=== PATIENT | female | born 1995 | race Caucasian/White ===

== ENCOUNTER 2024-01-27 10:12 | Emergency (ER) | payer OTHER, SELFPAY ==
[2024-01-27 10:13] VITALS: BP 160/111
[2024-01-27 10:41] VITALS: BMI 23.1
--- NOTE | 2024-01-27 10:52 | ED.GENMED ---
History of Present Illness
General
Chief Complaint: Heart Rate Problem
Time Seen by Provider: 01/27/24 10:34
Travel History
Have you had any contact with someone who has COVID-19?: No
Do you have any symptoms of coronavirus? Fever > 100 degrees, chills, cough, shortness of breath, sore throat, loss of taste or smell, muscle aches, or headache?: No
History of Present Illness
History of Present Illness:
Patient is a 28-year-old female with past medical history of GERD, anxiety, depression, and history of suicidal ideations, here today for evaluation of an episode of presyncope/syncope that occurred yesterday in the afternoon. Patient states
yesterday afternoon she was using a tanning bed when she developed sudden onset of feeling like she was going to pass out. Symptoms were described as feeling lightheaded, having tunnel vision, decreased/muffled hearing, a wave of generalized
tingling in her body, and palpitations. She does report feeling like she was going in and out of consciousness but was able to help her self to the floor and does not believe she truly blacked out. No head trauma. No uncontrollable shaking. No
history of seizure-like activity. Patient denies tongue biting. No urinary or bowel incontinence. Patient states the symptoms lasted less than 5 minutes and then self resolved. No noted chest pain. No focal weakness. No fevers. Symptoms have
significantly improved but she still reports mild fatigue, intermittent lightheaded, and generalized tingling in her body. Patient does report a similar episode happening this past October while she was in the car but this self resolved. She was
not medically evaluated at that time. The patient does report marijuana use but denies other drug use. She does endorse alcohol use and drinks approximately 4 drinks per day more than 5 days of the week. She denies alcohol or drug use prior to
the event. Patient does report eating appropriately prior to the event. No pain noted. She denies recent surgeries or immobilizations. No active cancer. No personal history of DVT/PE. No unilateral lower extremity pain or swelling. No
hemoptysis. The patient does report taking estrogen containing control.
Past History
Past History
ED Past Medical History: Psychiatric
ED Past Surgical History: None
Social History
Tobacco: Smoker
Alcohol: None
Drug: None
Family History
Family History: Hypertension
Review of Systems
Review of Systems
All Other Systems: ROS reviewed and negative except as documented in HPI and ROS
Phy Exam
Physical Exam
Physical Exam:
GENERAL: Alert , in no apparent distress
EYE: pupils equal and reactive to light, extraocular movements intact
NECK: Supple, no significant adenopathy.
ENT: o/p clr, mmm.
CARDIAC: Regular rate and rhythm .
LUNGS: Clear breath sounds bilaterally, no acute respiratory distress, no wheezes/rales/rhonchi
ABDOMEN: Soft, without focal tenderness, no r/g, no cvat
NEUROLOGICAL: Alert and oriented, no focal neuro deficits, cranial nerves II through XII intact, moving all extremities, normal sensation and motor, normal cerebellar function
SKIN: Warm and dry, skin intact.
MUSCULOSKELETAL: No edema, well perfused.
PSYCH: Normal and appropriate interaction.
Course
Orders/Labs/Results
Orders:
Orders
01/27/24 10:19
Electrocardiogram (*1) Urgent
Reason for Study: Chest Pain
EKG- Treatment ONCE
01/27/24 10:55
Orthostatic VS- Treatment ONCE
0.9% Sodium Chloride 1000 ml [Nss] 1,000 ml IV BOLUS
Test Result ONCE
01/27/24 10:56
Cardiac Monitoring- Treatment ONCE
01/27/24 11:06
Basic Metabolic Panel Urgent
Complete Blood Count/With Diff Urgent
D-Dimer Urgent
HCG, Serum Qualitative Screen Urgent
Comment: ADD ON
Magnesium Urgent
Phosphorus Urgent
TSH Reflex To Free T4 Urgent
Troponin I Urgent
01/27/24 11:15
Add On- LAB Urgent
Tests Added?: HCG Serum
01/27/24 12:40
CT Chest Pe Study Urgent
Comment:
Reason For Exam: elevated d-dimer, palpitations
Abnormal Lab Results
01/27/24
11:06
MCH 31.4 H pg
(27.0-31.0)
D-Dimer 0.60 H ug/mlFEU
(0.00-0.50)
01/27/24 11:06
01/27/24 11:06
Vital Signs
Initial and Last Documented VS:
Initial Vital Signs
Temp Pulse Resp BP Pulse Ox
97.6 F 105 20 160/111 98
01/27/24 10:13 01/27/24 10:13 01/27/24 10:13 01/27/24 10:13 01/27/24 10:13
Last Documented Vital Signs
Temp Pulse Resp BP Pulse Ox
97.6 F 84 19 146/95 99
01/27/24 10:13 01/27/24 12:45 01/27/24 12:45 01/27/24 12:00 01/27/24 12:45
MDM/Problems Addressed
Differential Diagnosis Includes:
Patient is a 28-year-old female with past medical history of GERD, anxiety, depression, and history of suicidal ideations, here today for evaluation of an episode of presyncope/syncope that occurred yesterday in the afternoon. Overall, patient
appears very well. She is moderately hypertensive here to 160/111. She is also mildly tachycardic to 105. Patient is afebrile. Patient otherwise has a benign and reassuring examination. She is neurologically intact without acute focal deficits
appreciated. No murmurs. The patient's episode of presyncope/syncope does not appear neurological in nature. No seizure-like activity noted. No findings of TIA/CVA. We discussed the possibility of dehydration and the fact that the patient was
in a very warm environment. We also discussed the possibility of a vasovagal near syncopal/syncopal episode. 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 Will obtain screening labs including to assess for dehydration as well as electrolyte
abnormalities. Will obtain D-dimer given tachycardia, estrogen-containing control, palpitations, and near syncope/syncope. Will obtain EKG. Will obtain orthostatic vital signs. Will closely monitor and reassess.
01/27/2024 1434: Screening labs were obtained which revealed no acute findings. D-dimer slightly elevated and this prompted a CT pulmonary embolism study which is negative for acute findings. Urine test negative. Patient reassessed. She
reports improvement of symptoms overall. At this time, no emergent findings identified. Symptoms/findings may be secondary to dehydration versus vasovagal etiology. At this time, patient appears well and stable for discharge with recommendations
to follow-up with her family doctor. Patient does have an appointment tomorrow morning to follow-up. Recommend to attend. I will also recommend cardiology evaluation. Patient voiced understanding of the above plan. She appears well and stable
for discharge. All questions answered. Case discussed with ED attending, Dr. Beal, who agrees with plan.
*EKG
Interpreted by ED Provider?: Yes
EKG Intrepretation Date: 01/27/24
EKG Intrepretation Time: 11:01
Interpretation: abnormal
Comparison EKG: no comparison EKG present
Heart Rate: 92
Rate: normal
Rhythm: sinus
[place]: normal axis
Interval: normal interval
QRS Pattern: normal QRS
Ischemia: T-wave inversion (noted along III and aVF)
*Critical Care Note
Total Time (30-74mins, 75-104mins- exclusive of procedures): Not Applicable
ED Attending Note
-
Portions of this chart may have been created with voice recognition software.� Occasional wrong word or��sound alike� substitutions may have occurred due to the inherent limitations of voice recognition software.
Discharge Plan
Departure
Patient Disposition: Home (Routine Discharge)
Date of Disposition: 01/27/24
Time of Disposition: 14:20
Patient with high blood pressure during this ER visit?: No
Condition: Good
Covid-19: Not Applicable
Discharge Problem:
Lightheadedness, Palpitations, Syncope
Instructions: Dizziness, Adult ED
Prescriptions:
No Action
ranitidine HCl [Zantac] 300 MG tablet
300 mg PO BID
clonazepam 1 MG tablet
1 mg PO TIDPRN PRN (Reason: anxiety)
spironolactone 50 MG tablet
50 mg PO DAILY
bupropion HCl 300 MG tablet extended release 24 hr
300 mg PO DAILY
duloxetine 30 MG capsule,delayed release(DR/EC)
30 mg PO DAILY
guaifenesin [Mucus Relief ER] 600 MG tablet extended release 12hr
600 mg PO BIDPRN PRN (Reason: congestion)
amoxicillin-pot clavulanate 1 TABLET tablet
1 tab PO Q12 Qty: 20 0RF
Referrals:
Mark Paredes DO [Active] - Follow up in 10 days
Erasto Rhoades MD [Family Provider] - Follow up in 5-7 days
Activity Restrictions/Additional Instructions:
You were seen in the emergency department today for evaluation. Your workup is largely unremarkable and without acute emergent findings identified.
The etiology of your symptoms is not 100% known at this time but may be secondary to dehydration versus vasovagal syncope.
Please monitor your symptoms and follow-up closely with your family doctor. We also recommend following up with a ophthalmic lens inspector for further testing and evaluation including Holter monitoring.
Return for any new, worsening, or concerning symptoms.
Interventions
Interventions:
*Risk Screen - Suicide Last Done: 01/27/24 10:13
*General Assessment Last Done: 01/27/24 10:13
*Neglect/Abuse Screening Last Done: 01/27/24 10:13
ED- Fall Risk Assessment Last Done: 01/27/24 11:23
ED- Cardiac Assessment Last Done: 01/27/24 11:23
ED- Pulmonary Assessment Last Done: 01/27/24 11:23
Discharge Date and Time
Print Language: SAO TOMEAN
[2024-01-27] MEDS: NSS 1000 IV (11:08)
[2024-01-27 11:14] VITALS: BP 134/87
[2024-01-27 11:16] VITALS: BP 145/95
[2024-01-27 11:17] VITALS: BP 122/88
[2024-01-27 11:17] LABS: % Basophils 0.9 % (0-2); % Immature Granulocytes 0.2 % (0-0.5); % Monocytes 6.6 % (1.7-9.3); % Neutrophils 67.3 % (42.2-75.2); Absolute Basophils 0.1 10^3/uL (0-0.2); Absolute Eosinophils 0.1 10^3/uL (0-0.7); Absolute Lymphocytes 1.3 10^3/uL (1.2-3.4); Absolute Monocytes 0.4 10^3/uL (0.1-0.6); Absolute Neutrophils 3.8 10^3/uL (1.4-6.5); Hematocrit 40.4 % (37.0-47.0); Hemoglobin 14.4 g/dL (12.0-16.0); Mean Corp Hgb Conc. 35.6 g/dL (33.0-37.0); Mean Corpuscular Hgb 31.4 pg (27.0-31.0); Mean Platelet Volume 8.6 fL (7.4-10.4); Nucleated Red Blood Cells % 0 %; Platelet Count 247 10^3/uL (130-400); Red Blood Cell Count 4.59 10^6/uL (4.20-5.40); Red Cell Dist. Width 11.9 % (11.5-14.5); White Blood Cell Count 5.6 10^3/uL (4.8-10.8)
[2024-01-27 11:22] VITALS: BP 122/88; BP 134/87; BP 145/95; PULSE 85; PULSE 88
[2024-01-27 11:29] LABS: Blood Urea Nitrogen 9 mg/dl (7-17); Carbon Dioxide 26 mmol/L (22-30); Chloride 106 mmol/L (98-107); Estimated Creatinine Clearance > 125 ml/min; Glucose 86 mg/dl (70-99); Magnesium 1.9 mg/dl (1.6-2.3); Phosphorus 2.5 mg/dl (2.5-4.5); Potassium 4.1 mmol/L (3.5-5.1); Sodium 139 mmol/L (135-145); eGFR > 60.00
[2024-01-27 11:41] LABS: Troponin I < 0.012 ng/ml
[2024-01-27 11:53] LABS: HCG, Serum Qualitative Screen Negative
[2024-01-27 12:00] VITALS: BP 146/95
== END 2024-01-27 14:44 | disposition home or self-care (01) ==
LOC: EMR 10:12
PROVIDERS: Physician Assistant; EMERGENCY PHYSICIAN Student in an Organized Health Care Education/Training Program; FAMILY PHYSICIAN Family Medicine
DX: R55 Syncope and collapse (principal); R42 Dizziness and giddiness; R00.2 Palpitations; F17.200 Nicotine dependence, unspecified, uncomplicated; R20.2 Paresthesia of skin; R00.0 Tachycardia, unspecified
CPT/HCPCS: 99285; 96360; 71275; 80048; 83735; 84100; 84443; 84484; 84703; 85025; 85379; 93005; Q9967

== ENCOUNTER 2025-05-10 13:46 | Emergency (ER) | payer OTHER, SELFPAY ==
[2025-05-10 13:53] VITALS: BP 140/100
--- NOTE | 2025-05-10 14:03 | EDRN ---
pt's heart rate noted to be fluctuating between 105-135 while taking vitals. EKG repeated due to high heart rate and pt feeling lightheaded.
[2025-05-10 14:56] LABS: Hematocrit 38.7 % (37.0-47.0); Hemoglobin 13.9 g/dL (12.0-16.0); Mean Corp Hgb Conc. 35.9 g/dL (33.0-37.0); Mean Corpuscular Volume 87.8 fL (81.0-99.0); Nucleated Red Blood Cells % 0 %; Platelet Count 261 10^3/uL (130-400); Red Cell Dist. Width 11.8 % (11.5-14.5)
[2025-05-10 15:09] LABS: ALT (SGPT) 34 U/L (0-35); AST (SGOT) 34 U/L (14-36); Albumin 4.9 g/dl (3.5-5.0); Alkaline Phosphatase 31 U/L (38-126); Blood Urea Nitrogen 11 mg/dl (7-17); Calcium 9.7 mg/dl (8.4-10.2); Carbon Dioxide 23 mmol/L (22-30); Chloride 105 mmol/L (98-107); Glucose 135 mg/dl (70-99); Potassium 3.8 mmol/L (3.5-5.1); Sodium 138 mmol/L (135-145); Total Protein 8.1 g/dl (6.3-8.2); eGFR > 60.00
--- NOTE | 2025-05-10 15:22 | ED.GENMED ---
History of Present Illness
General
Chief Complaint: Heart Rate Problem
Source: patient
Exam Limitations: none
Time Seen by Provider: 05/10/25 15:02
Nursing documentation reviewed up to this point in time: agreed with
History of Present Illness
History of Present Illness:
Patient to ED with complaint of intermittent episodes of rapid heart rate, SOB. Symptoms first began approx 1.5yrs ago and were infrequent. Now happening multiple times/week. Reports feeling lightheaded, numbness and tingling to expremities and
to lips. Evaluated by PCP yesterday and was given rx for xanax at patients request to help calm her when symtoms occur. Took 2 tablet so far today. She reports it helps lessen the anxiety in her head but does not prevent the symptms she has been
experiencing. SHe evaluated her heart rate last week on fathers monitor and states monitor read Afib. Came to ED today from work due to her symptoms.
Past History
Past History
ED Past Medical History: Psychiatric and Other (Debra's thyroiditis)
ED Past Surgical History: None
Social History
Tobacco: Smoker
Alcohol: Occasional
Drug: None
Family History
Family History: Hypertension
Review of Systems
Review of Systems
Allergies reviewed?: Yes
All Other Systems: ROS reviewed and negative except as documented in HPI and ROS
Constitutional: Reports no symptoms
EENT: Reports no symptoms
Respiratory: Reports trouble breathing
Cardiac: Reports diaphoresis, palpitations and other (rapid heart rate)
ABD/GI: Reports no symptoms
: Reports no symptoms
Musculoskeletal: Reports no symptoms
Skin: Reports no symptoms
Neurological: Reports dizzy
Psychiatric: Reports no symptoms
Phy Exam
General Physical Exam
General Presentation: well appearing and mild distress
General age: appears stated age
General Skin: warm and dry
General Habitus: normal
General Mental: alert
General Hydration: appears well hydrated
Cardiovascular Exam
Cardiovascular Exam: no edema and tachycardia
Pulmonary Exam
Pulmonary Exam: lungs clear, no respiratory distress and chest non tender
Musculoskeletal Exam
Musculoskeletal Exam: full ROM, no edema and neuro vasc intact
Skin Exam
Skin Exam: normal color, warm/dry and no rash
Psychiatric Exam
Psychiatric Exam: normal mood/affect
Course
Orders/Labs/Results
Orders:
Orders
05/10/25 13:47
Electrocardiogram (*1) Urgent
Reason for Study: Chest Pain
EKG- Treatment ONCE
05/10/25 13:58
Electrocardiogram (*1) Routine
Reason for Study: Palpitations
05/10/25 14:40
Complete Blood Count/With Diff Urgent
Comprehensive Metabolic Panel Urgent
HCG, Serum Qualitative Screen Urgent
Comment: ADD ON
TSH Reflex To Free T4 Urgent
Comment: ADD ON
05/10/25 15:03
Add On- LAB Urgent
Tests Added?: TSH reflex free T4
05/10/25 15:21
Add On- LAB Urgent
Tests Added?: Serum HCg qualitative
05/10/25 17:22
D-Dimer Urgent
Abnormal Lab Results
05/10/25
14:40
MCH 31.5 H pg
(27.0-31.0)
Glucose 135 H mg/dl
(70-99)
Alkaline Phosphatase 31 L U/L
(38-126)
05/10/25 14:40
05/10/25 14:40
Vital Signs
Initial and Last Documented VS:
Initial Vital Signs
Temp Pulse Resp BP Pulse Ox
97.9 F 120 20 140/100 99
05/10/25 13:53 05/10/25 13:53 05/10/25 13:53 05/10/25 13:53 05/10/25 13:53
Last Documented Vital Signs
Temp Pulse Resp BP Pulse Ox
97.9 F 88 13 139/95 99
05/10/25 13:53 05/10/25 16:00 05/10/25 16:00 05/10/25 16:00 05/10/25 15:28
*Pulse Oximetry
SaO2: 99
Oxygen Mode of Delivery: Room air
Patient hypoxic: no
*EKG
Interpretation: normal
Rate: normal
Rhythm: sinus
*Critical Care Note
Total Time (30-74mins, 75-104mins- exclusive of procedures): Not Applicable
Update Note
Update Note:
Patient to ED iwth report of rapid heartrate, dizizness. Intermittent episodes that started 1.5yrs ago but are now more frequent. Symptoms resolved in ED> HR low 80's. BPmildly elevated. Labs, EKG WNL. Thyroid an ddimer both neg. Discussed
above with patient. WIll discharge home, close follow upw ith PCP. SHe will schedule holter monitor and thyroid US ordered by PCP in AM. Given number for cardiology follow up. Given instructions on s/s to return to ED and she is agreeable to
plan.
ED Attending Note
-
Portions of this chart may have been created with voice recognition software.� Occasional wrong word or��sound alike� substitutions may have occurred due to the inherent limitations of voice recognition software.
Discharge Plan
Departure
Patient Disposition: Home (Routine Discharge)
Date of Disposition: 05/10/25
Time of Disposition: 17:59
Patient with high blood pressure during this ER visit?: No
Condition: Good
Covid-19: Not Applicable
Discharge Problem:
Tachycardia
Instructions: Tachycardia
Prescriptions:
No Action
ranitidine HCl [Zantac] 300 MG tablet
300 mg PO BID
clonazepam 1 MG tablet
1 mg PO TIDPRN PRN (Reason: anxiety)
spironolactone 50 MG tablet
50 mg PO DAILY
bupropion HCl 300 MG tablet extended release 24 hr
300 mg PO DAILY
duloxetine 30 MG capsule,delayed release(DR/EC)
30 mg PO DAILY
guaifenesin [Mucus Relief ER] 600 MG tablet extended release 12hr
600 mg PO BIDPRN PRN (Reason: congestion)
amoxicillin-pot clavulanate 1 TABLET tablet
1 tab PO Q12 Qty: 20 0RF
Referrals:
Rik Michel MD [Active, Cardiology] - Next open appointment
Agnes Raphael CRNP [Family Provider, Internal Medicine]
Activity Restrictions/Additional Instructions:
Schedule your holter monitor and thyroid ultrasound. Avoid caffeine, nicotene. Stay well hydrated. Return to the emergency department immediately for any changes in/worsening of your symptoms.
Interventions
Interventions:
*Risk Screen - Suicide Last Done: 05/10/25 13:53
*General Assessment Last Done: 05/10/25 13:53
*Neglect/Abuse Screening Last Done: 05/10/25 13:53
*ED- Fall Risk Assessment Last Done: 05/10/25 15:25
*ED COVID-19 Vaccine History Last Done: 05/10/25 15:25
ED- Cardiac Assessment Last Done: 05/10/25 15:25
ED- Pulmonary Assessment Last Done: 05/10/25 15:25
Discharge Date and Time
Print Language: INDONESIAN
[2025-05-10 16:00] VITALS: BP 139/95
[2025-05-10 16:15] LABS: HCG, Serum Qualitative Screen Negative
[2025-05-10 17:00] VITALS: BP 132/97
[2025-05-10 17:45] LABS: D-Dimer 0.31 ug/mlFEU (0.00-0.50)
[2025-05-10 18:09] VITALS: BP 143/93
== END 2025-05-10 18:11 | disposition home or self-care (01) ==
LOC: EMR 13:46
PROVIDERS: Nurse Practitioner; EMERGENCY PHYSICIAN Emergency Medicine; FAMILY PHYSICIAN Nurse Practitioner
DX: R00.0 Tachycardia, unspecified (principal); E06.3 Autoimmune thyroiditis; F17.200 Nicotine dependence, unspecified, uncomplicated
CPT/HCPCS: 99284; 80053; 84443; 84703; 85025; 85379; 93005

== ENCOUNTER → 2025-05-14 09:37 | Outpatient (REF) | payer OTHER, SELFPAY | LOC: RCS 09:37 | PROVIDERS: ATTENDING PHYSICIAN Nurse Practitioner | DX: R00.2 Palpitations (principal) | CPT/HCPCS: 93225; 93226 ==

== ENCOUNTER → 2025-05-16 07:35 | Outpatient (REF) | payer OTHER, SELFPAY | LOC: HWRAD 07:35 | PROVIDERS: ATTENDING PHYSICIAN Nurse Practitioner | DX: E06.3 Autoimmune thyroiditis (principal) | CPT/HCPCS: 76536 ==